=== PATIENT | male | born 1990 | race American Indian/Alaskan Native ===

== ENCOUNTER 2019-04-22 02:44 | Emergency (ER) | payer SELFPAY ==
--- NOTE | 2019-04-22 03:28 | XRay Report ---
Right ankle, 3 views INDICATION: Pain following injury tonight FINDINGS: There are mild degenerative changes at the ankle joint with spurring already present despit e the patient's age. There is no fracture or dislocation however. No definite acute abnormality. Signer Name: Arcadio Donato MD Signed: 04/22/2019 3:24 AM Workstation Name: [id number]
[2019-04-22] MEDS ORDERED: IBUPROFEN PO ONE (04:22)
[2019-04-22] MEDS ORDERED: ULTRAM PO ONE (04:22)
--- NOTE | 2019-04-22 04:27 | Emergency Department Report ---
ED Lower Extremity HPI - General Chief Complaint: Extremity Injury, Lower Stated Complaint: POSS BROKE ANKLE Time Seen by Provider: 04/22/19 04:11 Source: patient, police Mode of arrival: Ambulatory Limitations: No Limitations - History of Present Illness Initial Comments: This is a pleasant 28-year-old gentleman, who is not known to this provider previously. The patient reports no chronic medical conditions. He presents to the ER with a complaint of accidental right lateral and right medial ankle pain, after stepping out of a truck wrong way. He denies other injuries, and he denies other complaints. He endorses sharp, throbbing, aching ankle pain, the increases with palpation, decreases with rest, and moved to the dorsal aspect of the right foot, and distal anterior aspect of the tibial region. He denies other injuries, and he denies other complaints. MD Complaint: ankle injury -: Sudden Injury: Ankle: Right Type of Injury: blunt Place: street/outdoors Severity: moderate Improves With: rest Worsens With: movement, palpation Context: other Associated Symptoms: snap/pop sensation, swelling, able to partially bear weight - Related Data Previous Rx's Medication Instructions Recorded Last Taken Type Acetaminophen [Non-Aspirin Extra 500 mg PO Q6HR PRN #30 tablet 04/22/19 Unknown Rx Strength] Ibuprofen [Motrin] 600 mg PO Q8H PRN #30 tablet 04/22/19 Unknown Rx Allergies Allergy/AdvReac Type Severity Reaction Status Date / Time No Known Allergies Allergy Verified 04/22/19 02:49 ED Review of Systems ROS: Stated complaint: POSS BROKE ANKLE Other details as noted in HPI Musculoskeletal: joint swelling, arthralgia, myalgia Neurological: denies: numbness, paresthesias ED Past Medical Hx - Past Medical History Previous Medical History?: No - Surgical History Past Surgical History?: No - Social History Smoking Status: Never Smoker Substance Use Type: Alcohol - Medications Home Medications: Home Medications Medication Instructions Recorded Confirmed Last Taken Type Acetaminophen [Non-Aspirin Extra 500 mg PO Q6HR PRN #30 tablet 04/22/19 Unknown Rx Strength] Ibuprofen [Motrin] 600 mg PO Q8H PRN #30 tablet 04/22/19 Unknown Rx ED Physical Exam - General Limitations: No Limitations General appearance: alert - Head Head exam: Present: atraumatic, normocephalic - Eye Eye exam: Present: normal appearance, EOMI. Absent: nystagmus - ENT ENT exam: Present: normal exam, normal orophraynx, mucous membranes moist, normal external ear exam - Neck Neck exam: Present: normal inspection, full ROM. Absent: tenderness, meningismus - Respiratory Respiratory exam: Present: normal lung sounds bilaterally. Absent: respiratory distress - Cardiovascular Cardiovascular Exam: Present: regular rate, normal rhythm, normal heart sounds. Absent: bradycardia, tachycardia, irregular rhythm, systolic murmur, diastolic murmur, rubs, gallop - GI/Abdominal GI/Abdominal exam: Present: soft. Absent: distended, tenderness, guarding, rebound, rigid, pulsatile mass - Rectal Rectal exam: Present: deferred - Extremities Exam Extremities exam: Present: normal inspection, full ROM (full range of motion in the bilateral upper extremities, and left lower extremity. Range of motion intact in the right knee, and right hip. Right ankle range of motion limited secondary to pain), tenderness (there is tenderness in the right medial ankle and right lateral ankle. The compartments are soft. There is no joint instability. There is a functional Sun test. There is no anterior tibial tenderness. There is no tenderness on the foot.), other (2+ pulses noted in the bilateral upper, lower extremities. Compartments soft. No long bony tenderness. The pelvis is stable.). Absent: calf tenderness - Back Exam Back exam: Present: normal inspection, full ROM. Absent: tenderness, CVA tenderness (R), CVA tenderness (L), paraspinal tenderness, vertebral tenderness - Neurological Exam Neurological exam: Present: alert, oriented X3, other (Extraocular movements intact. Tongue midline. No facial droop. Facial sensation intact to light touch in the V1, V2, V3 distribution bilaterally. 5 and 5 strength in 4 extremities.. Sensation is intact to light touch in 4 extremities.). Absent: motor sensory deficit - Psychiatric Psychiatric exam: Present: normal affect, normal mood - Skin Skin exam: Present: warm, dry, intact, normal color. 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 Soft tissue swelling noted. - Medical Decision Making Differential diagnosis, including not limited to: Sprain, strain, fracture, dislocation Assessment and plan: 28-year-old gentleman status post accidental blunt injury to the right ankle. No other obvious injuries or complaints. X-ray shows no fracture or dislocation. The patient is neurovascularly intact. Exam not consistent with compartment syndrome. Plan is to provide pain medication, splint, crutches, nonweightbearing, and he'll be instructed to follow-up with outpatient orthopedics. Critical care attestation.: If time is entered above; I have spent that time in minutes in the direct care of this critically ill patient, excluding procedure time. ED Disposition Clinical Impression: Right ankle sprain Disposition: [id number] TO HOME OR SELFCARE Is pt being admited?: No Does the pt Need Aspirin: No Condition: Stable Instructions: Ankle Sprain (ED) Additional Instructions: Recommend patient remain nonweightbearing on the right foot/ankle, use the crutches as directed, follow up with a primary care doctor or orthopedist within the next 7-10 days for repeat evaluation, for possible physical therapy. Take pain medication as needed/directed, rest, avoid heavy lifting, and patient may alternate ice and heat packs as needed for pain. Return to the emergency room right away with new, worsening or different symptoms, or symptoms not present on the initial emergency room evaluation. Referrals: SANTOS ROSENBERG MD [Staff Physician] - 3-5 Days [facility] [Provider Group] - 3-5 Days Forms: Work/School Release Form(ED)
[2019-04-22 04:49] VITALS: BP 137/88
== END 2019-04-22 04:50 | disposition home or self-care (01) ==
LOC: ED 02:44
DX: S93.401A Sprain of unspecified ligament of right ankle, initial encounter (principal); Z79.899 Other long term (current) drug therapy; W22.8XXA Striking against or struck by other objects, initial encounter; Y93.89 Activity, other specified; Y92.410 Unspecified street and highway as the place of occurrence of the external cause; Y99.8 Other external cause status